=== PATIENT | male | born 1945 | race Two or more races ===

== ENCOUNTER 2024-08-30 06:00 | Day surgery (SDC) | payer OTHER ==
[~2024-08-30 06:00] MED LIST: AVAPRO150 MG PO
[2024-08-30] MEDS ORDERED: ENOXAPARIN SODIUM 40 MG/0.4 ML SYRINGE SUBCUTANEO ONE (08:50)
[2024-08-30] MEDS ORDERED: BUPIVACAINE HCL/MPF 0.5% 30ML VIAL ONE (08:50)
[2024-08-30] MEDS ORDERED: METRONIDAZOLE/SODIUM CHLORIDE 500 MG/100 ML PIGGYBACK IV ONE (08:51)
[2024-08-30] MEDS ORDERED: CEFTRIAXONE SODIUM 2,000 MG VIAL ONE (08:51)
[2024-08-30] MEDS ORDERED: BUPIVACAINE HCL/PF 0.25% 30ML VIAL InF SCH (09:45)
[2024-08-30] MEDS ORDERED: ENOXAPARIN SODIUM 40 MG/0.4 ML SYRINGE SUBCUTANEO SCH (09:45)
[2024-08-30] MEDS ORDERED: CEFTRIAXONE SODIUM 2,000 MG VIAL IV SCH (09:45)
[2024-08-30] MEDS ORDERED: METRONIDAZOLE/SODIUM CHLORIDE 500 MG/100 ML PIGGYBACK IV SCH (09:45)
[2024-08-30] MEDS ORDERED: SUGAMMADEX SODIUM 200 MG/2 ML VIAL IV ONE (10:41)
[2024-08-30] MEDS ORDERED: ENALAPRILAT DIHYDRATE 1.25 MG/ML VIAL IV ONE (10:45)
[2024-08-30] MEDS ORDERED: ENALAPRILAT DIHYDRATE 1.25 MG/ML VIAL IV SCH (11:30)
[2024-08-30] MEDS ORDERED: MORPHINE SULFATE 2 MG/ML CARTRIDGE IV ONE ×2 (11:45→12:15)
[2024-08-30] MEDS ORDERED: NEURONTIN300 MG PO (11:55)
[2024-08-30] MEDS ORDERED: PERCOCET 5-3251 EACH PO (11:55)
[2024-08-30] MEDS ORDERED: CELEBREX200MG PO (11:55)
[2024-08-30] MEDS ORDERED: POLY119PG PO (11:55)
== END 2024-08-30 13:20 | disposition home or self-care (01) ==
LOC: CIR.AMB 06:00
PROVIDERS: ATTEND Surgery
DX: K42.0 Umbilical hernia with obstruction, without gangrene (principal); K43.0 Incisional hernia with obstruction, without gangrene
CPT/HCPCS: 49614; C1781